=== PATIENT | female | born 1995 | race Caucasian/White ===

== ENCOUNTER 2018-05-13 02:20 | Emergency (ER) | payer OTHER ==
[~2018-05-13] VITALS: Ht 157.5 cm; Wt 46.6 kg
[2018-05-13] MEDS ORDERED: IBUPROFEN 600 MG TABLET ONE (02:38)
[2018-05-13] MEDS ORDERED: ACETAMINOPHEN 500 MG TABLET ONE (02:41)
[2018-05-13 02:46] LABS: MICROSCOPIC AUTO
[2018-05-13 02:48] LABS: CULTURE INDICATED? YES
[2018-05-13 02:49] LABS: HCG UR SG 1.015 (1.003-1.030)
[2018-05-13] MEDS ORDERED: ACETAMINOPHEN 500 MG TABLET PO ONE (03:00)
[2018-05-13] MEDS ORDERED: CEFDINIR 300 MG CAPSULE PO SCH (03:00)
[2018-05-13] MEDS ORDERED: IBUPROFEN 200 MG TABLET PO ONE (03:00)
[2018-05-13] MEDS ORDERED: CEFDINIR 300 MG CAPSULE ONE (03:01)
[2018-05-13 03:13] VITALS: BP 100/56
== END 2018-05-13 03:15 | disposition home or self-care (01) ==
LOC: ED 02:51
DX: N10 Acute pyelonephritis (principal); N39.0 Urinary tract infection, site not specified
CPT/HCPCS: 81001; 81025; 87077; 87086; 87186; 99283